=== PATIENT | female | born 1980 ===

== ENCOUNTER 2025-10-22 07:00 | Day surgery (SDC) | payer OTHER ==
[2025-10-13 10:31] VITALS: BP 125/85
[2025-10-13 11:16] LABS: BASO % 0.1 % (0.1-1.2); EOS # 0.12 (0.04-0.54); EOS % 1.6 % (0.7-7.0); LYMPH # 3.01 (1.18-3.74); LYMPH % 40.7 % (19.3-53.1); MEAN PLATELET VOLUME 10.40 fl (9.4-12.4); MONO # 0.54 (0.24-0.82); MONO % 7.3 % (4.7-12.5); NEUT # 3.70 (1.56-6.13); NEUT % 50.0 % (34.0-71.1); RED CELL DISTRIBUTION WIDTH 13.0 % (11.6-14.4)
[2025-10-13 11:22] LABS: URINE APPEARANCE Clear; URINE BILIRRUBIN Negative (NEGATIVE); URINE BLOOD Negative; URINE COLOR Yellow; URINE GLUCOSE Negative (NEGATIVE); URINE KETONE Negative (NEGATIVE); URINE LEUKOCYTE Trace; URINE NITRATE Negative; URINE PROTEIN Negative (NEGATIVE); URINE UROBILINOGEN 0.2 E.U./dl
[2025-10-13 11:27] LABS: URINE BACTERIA 244.7 uL (0.0-1933); URINE EPITHELIAL CELLS 16.8 uL (0.0-38.8); URINE RBC 4.5 uL (0.0-20.8); URINE WBC 12.7 uL (0.0-23.2)
[2025-10-13 11:30] LABS: URINE CAST 0.00 uL (0.0-1.40)
[2025-10-13 11:35] LABS: INR 0.98
[2025-10-13 12:03] LABS: BUN CREA RATIO 17.0 (7.0-25.0); CREATININE SERUM 0.63 mg/dL (0.55-1.02); GFR 102.66; GLUCOSE FASTING 97.0 mg/dL (65-100); OSMOLALITY SERUM 284.0 MOSM/KG (275-295)
[~2025-10-22] VITALS: Ht 180.3 cm; Wt 87.1 kg
[2025-10-22] MEDS ORDERED: CEFAZOLIN SODIUM 1,000 MG VIAL ONE (07:22)
[2025-10-22] MEDS ORDERED: SUGAMMADEX SODIUM 200 MG/2 ML VIAL IV ONE (09:00)
[2025-10-22] MEDS ORDERED: CIPROFLOXACIN HCL 0.175 MG/DR DROPS OTIC ONE (09:15)
== END 2025-10-22 13:00 | disposition home or self-care (01) ==
LOC: CIR.AMB 07:00
PROVIDERS: ATTEND Otolaryngology Otology & Neurotology
DX: H73.822 Atrophic nonflaccid tympanic membrane, left ear (principal); H65.23 Chronic serous otitis media, bilateral; H69.82 Other specified disorders of Eustachian tube, left ear